=== PATIENT | male | born 1945 | race Caucasian/White ===

== ENCOUNTER → 2020-04-11 09:23 | Outpatient (BNVA) | payer MEDICARE, SELFPAY | PROVIDERS: PCP Internal Medicine; Referring Provider Internal Medicine; Visit Provider Internal Medicine Endocrinology, Diabetes & Metabolism | DX: E11.65 Type 2 diabetes mellitus with hyperglycemia (principal); E11.22 Type 2 diabetes mellitus with diabetic chronic kidney disease; I12.9 Hypertensive chronic kidney disease with stage 1 through stage 4 chronic kidney disease, or unspecified chronic kidney disease; N18.30 Chronic kidney disease, stage 3 unspecified; E11.40 Type 2 diabetes mellitus with diabetic neuropathy, unspecified; Z79.4 Long term (current) use of insulin; E55.9 Vitamin D deficiency, unspecified | CPT/HCPCS: 99214 ==

== ENCOUNTER → 2020-05-05 11:28 | Outpatient (BNVA) | payer MEDICARE, SELFPAY | PROVIDERS: PCP Internal Medicine; Referring Provider Internal Medicine; Visit Provider Internal Medicine Gastroenterology | DX: R15.9 Full incontinence of feces (principal); R10.13 Epigastric pain | CPT/HCPCS: 99212 ==

== ENCOUNTER → 2020-07-06 11:06 | Outpatient (BNVA) | payer MEDICARE, SELFPAY | PROVIDERS: PCP Internal Medicine; Visit Provider Urology | DX: N39.41 Urge incontinence (principal); R31.0 Gross hematuria | CPT/HCPCS: 81002; 99212 ==

== ENCOUNTER → 2020-07-07 10:39 | Outpatient (BNVA) | payer MEDICARE, SELFPAY | PROVIDERS: PCP Internal Medicine; Visit Provider Internal Medicine Gastroenterology | DX: R10.13 Epigastric pain (principal); N39.41 Urge incontinence; R15.9 Full incontinence of feces | CPT/HCPCS: Q3014 ==

== ENCOUNTER 2020-07-20 12:37 | Day surgery (SDC) | payer MEDICARE, SELFPAY ==
[2020-07-20 13:11] LABS: Glucose, Whole Blood 77 mg/dL (60-115)
[2020-07-20 13:26] VITALS: BP 129/69; PULSE 55; RESP 16; TEMP 36.8; O2SAT 99; BMI 22.4
--- NOTE | 2020-07-20 13:29 | P.CONAN_ITS ---
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, lumbosacral Eczema Erectile dysfunction Gross hematuria Hematuria Hypertension Idiopathic chronic pancreatitis residential (current) use of insulin Type II diabetes mellitus Urge incontinence Urinary leakage Vitamin D deficiency Family History Family History Father Diabetes Mother Diabetes CVD (cardiovascular disease) Brother Diabetes Alive and well Brother Alive and well Diabetes Sister Alive and well Son Alive and well Daughter Alive and well Daughter Alive and well Daughter Alive and well Surgical History Surgical History History of cholecystectomy History of esophagogastroduodenoscopy History of prostate surgery History of rotator cuff surgery History of shoulder surgery History of shoulder surgery Pancreatitis Status post glaucoma surgery History of Problems with Anesthesia: Yes ('Needs more anesthesia to fall asleep') Social History Social History Alcohol intake: never Smoking Status: Never smoker Use of substances other than those prescribed or required for medical reasons: No Advance Directives: No Advance Directives Information Provided: Yes Meds Allergies Allergy/AdvReac Type Severity Reaction Status Date / Time Penicillins Allergy Mild Unknown Verified 07/20/20 13:22 fentanyl Allergy Unknown rash Verified 07/20/20 13:22 Home Medications Medication Instructions Recorded Confirmed Type acetaminophen 500 mg tablet 0 mg PO 03/27/20 07/14/20 History aspirin 81 mg tablet,delayed 81 mg PO DAILY 03/27/20 07/14/20 History release blood pressure test kit-large #1 ea 03/27/20 07/14/20 History gabapentin 300 mg capsule 300 mg PO BID 03/27/20 07/14/20 History gabapentin 600 mg tablet 0 mg PO 03/27/20 07/14/20 History [id number]-[id number] 0 cap PO 03/27/20 07/14/20 History 36,000-114,000-180,000 unit capsule,delay rel loperamide 2 mg capsule 0 mg PO 03/27/20 07/14/20 History morphine 15 mg tablet,extended 15 mg PO BID PRN 03/27/20 07/14/20 History release naloxone 4 mg/actuation nasal spray 0 spray INTRANASAL 03/27/20 07/14/20 History ondansetron 8 mg disintegrating 8 mg PO Q8H PRN 03/27/20 07/14/20 History tablet peg-electrolyte solution 420 gram ml PO 03/27/20 07/14/20 History oral solution pen needle, diabetic 32 gauge x #50 ea 03/27/20 07/14/20 History 5/ quetiapine 300 mg tablet 300 mg PO BEDTIME 03/27/20 07/14/20 History ramelteon 8 mg tablet 0 mg PO 03/27/20 07/14/20 History simethicone 125 mg chewable tablet 0 mg PO 03/27/20 07/14/20 History cetirizine 10 mg tablet 10 mg PO DAILY 07/06/20 07/14/20 History meloxicam 15 mg tablet 15 mg PO DAILY 07/06/20 07/14/20 History oxycodone 10 mg tablet 10 mg PO TID PRN 07/06/20 07/14/20 History Exam Exam Date and Time: July 20, 2020 1329 Height,Weight and Vital Signs: Vital Signs Temp Pulse Resp BP Pulse Ox 07/20/20 13:26 98.3 F 55 16 129/69 99 Pertinent Lab Results Pertinent Lab Results: Laboratory Tests 07/20/20 13:07 POC Glucose 77 Airway Mallampati Class: III (Bearded) TM Dist: >3cm Neck ROM: Full Heart: RRR Lungs: CTAB Assessment and Plan Assessment Anesthesia Assessment: Anesthesia Plan Discussed and Chart Reviewed Final Anesthetic Review NPO: Yes ASA Class: III Final Preanesthetic Review: No Changes in Pt Med Stat, Meds/Allgs Chart Reviewed and Consent Obtained/Reviewed Patient Risk: Intermediate Procedure Risk: Low Assessment/Block/Sedation in SS: Assess/Block/Sedation-SS Anesthetic Plan Anesthetic Plan: MAC: Disposition: Standard PACU
--- NOTE | 2020-07-20 14:00 | MHC.SHP ---
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, lumbosacral Eczema Erectile dysfunction Gross hematuria He) History of Previous Operations: Relevant previous surgery/procedure and date(s) (History of cholecystectomy History of esophagogastroduodenoscopy History of prostate surgery History of rotator cuff surgery History of shoulder surgery History of shoulder surgery Pancreatitis Status post glaucoma surgery) Allergies: Allergies Allergy/AdvReac Type Severity Reaction Status Date / Time Penicillins Allergy Mild Unknown Verified 07/20/20 13:22 fentanyl Allergy Unknown rash Verified 07/20/20 13:22 Review of Systems Sugical H&P ROS: Negative: Constitution, Cardiovascular, Respiratory, Neurological, Psychiatric, Hem-Onc, Allergic/Immunologic, Gastrointestinal, Genitourinary, Musculoskeletal, Integumentary, Endocrine and Eyes/Ears/Nose/Throat Exam Surgical H&P Exam: Normal: HEENT, Normal: Heart, Normal: Lungs, Normal: Extremities, Normal: Skin and Normal: Neurological and Significant Findings: Abdomen (tender epigastrium) Plan Diagnosis/Plan: Unchanged I have reviewed the history and physical and performed a pertinent physical examination on my patient. No changes have occurred unless specified. Push enteroscopy and EGD
--- NOTE | 2020-07-20 14:38 | PM.OP ---
Brief Operative Note Date of Service: 07/20/20 Pre-op diagnosis: melena, epigastric pain Post-op diagnosis: same Procedure: see op note Surgeon: Prasanna Irving MD Anesthesia: MAC Estimated blood loss (mL): 0 Condition: stable Disposition: PACU
--- NOTE | 2020-07-20 14:39 | W.PM.OPN ---
Operative Note Operative Note Date of Service: 07/20/20 Narrative: Procedure Description: EGD FLEXIBLE TRANSORAL UPPER GASTROINTESTINAL ENDOSCOPY and Push Enteroscopy UPPER ENDOSCOPY Consent: Indications for the procedure and potential complications of bleeding, perforation, reaction to medications and missed diagnosis were discussed with the patient and informed consent was obtained. Instrument: Olympus GIF H 190 J mid size upper endoscope and pediatric colonoscope Monitoring: Vital signs and clinical assessment, continuous EKG monitoring, Pulse oximetry, Carbon Dioxide monitoring and blood pressure monitoring were done throughout the procedure. Procedure: The patient was placed in the left lateral decubitis position and pre-procedure medications were administered and a bite block was placed. The endoscope was inserted into the mouth and advanced under direct vision to the third part of duodenum. A careful inspection was made as the upper endoscope was withdrawn including a retroflexed examination of the proximal stomach; Findings and interventions are described below. Findings: Larynx:normal Esophagus: GE junction at 39 cm, diaphragm hiatus at 42 cm, there was mild esophagitis at GEJ and also single tongue of salmon pink tissue suggesting barretts esophagus, biopsy taken. There was a small sliding hiatal hernia 3 cm long. Stomach: Patchy gastric erythema with red miller. Biopsies were obtained. Grade 2 flap valve on retroflexed examination of the cardia. There was an inflamed nodular, polypoid lesion in cardia which was biopsied, measured about 8-10 mm. There were nor esophageal or gastric varices seen. Duodenum: Normal bulb and descending duodenum, jejunum: proximal part reached past ligament of Treitz, no blood or melenic material seen, furthermost point marked with ventura ink. Intervention: Biopsies as noted above Impression/Findings: esophagitis gastritis hiatal hernia inflammed polyp/nodule lesion PLAN: confirm compliance with carafate and PPI, if taking then can add gaviscon might need capsule endoscopy, will check labs first and await path
[2020-07-20 15:31] VITALS: BP 115/63; PULSE 69; RESP 16; TEMP 36.1; O2SAT 100
[2020-07-20 15:46] VITALS: BP 136/79; PULSE 62; RESP 17; TEMP 36.2; O2SAT 100
== END 2020-07-20 16:30 | disposition home or self-care (01) ==
PROVIDERS: PCP Internal Medicine; Visit Provider Internal Medicine Gastroenterology
PROC: 0DJ08ZZ Inspection of Upper Intestinal Tract, Via Natural or Artificial Opening Endoscopic (ICD-10-PCS; CPT 43235; principal; 2020-07-20 14:30)
DX: K29.50 Unspecified chronic gastritis without bleeding (principal); K20.90 Esophagitis, unspecified without bleeding; K44.9 Diaphragmatic hernia without obstruction or gangrene; K31.7 Polyp of stomach and duodenum; E11.22 Type 2 diabetes mellitus with diabetic chronic kidney disease; I12.9 Hypertensive chronic kidney disease with stage 1 through stage 4 chronic kidney disease, or unspecified chronic kidney disease; N18.30 Chronic kidney disease, stage 3 unspecified; Z79.4 Long term (current) use of insulin; Z79.82 Long term (current) use of aspirin; Z88.0 Allergy status to penicillin; Z88.8 Allergy status to other drugs, medicaments and biological substances; Z79.899 Other long term (current) drug therapy
CPT/HCPCS: 43239; 43236; 82947; 88305; 88342; J3010

== ENCOUNTER 2020-08-04 08:01 | Outpatient (REF) | payer MEDICARE, SELFPAY ==
--- NOTE | ~2020-08-04 | XR_ITS ---
EXAMINATION: XR HIP, LEFT CLINICAL INFORMATION: Left hip pain. COMPARISON: None TECHNIQUE: Two views of the left hip. FINDINGS: There is minimal lateral femoral head spurring. No erosive changes, loose bodies or joint effusion seen. The soft tissues are normal. XR/XR hip LT min 2V IMPRESSION: Minimal lateral femoral head spurring. The left hip joint space is otherwise unremarkable.
[2020-08-04 10:22] LABS: MANUAL DIFF FLAG NO
[2020-08-04 10:30] LABS: Basophils Percent Auto 0.5 % (0-2); Eosinophils Absolute Auto 0.2 X10*3/uL (0.0-0.4); Eosinophils Percent Auto 3.4 % (0-4); Hematocrit 34.6 % (42-52); Hemoglobin 11.1 g/dl (14.0-18.0); Imm Gran Abs Auto 0.02 X10*3/uL (0.00-0.03); Imm Gran Pct Auto 0.4 % (0.0-0.4); Lymphocytes Absolute Auto 1.8 X10*3/uL (1.2-4.9); Lymphocytes Percent Auto 32.6 % (20-40); Mean Corpuscular HGB Conc 32.1 g/dl (31.0-36.0); Mean Corpuscular Hemoglobin 27.5 pg (27.0-33.0); Mean Corpuscular Volume 85.9 fL (80-98); Mean Platelet Volume 10.3 fL (9.4-12.4); Monocytes Absolute Auto 0.3 X10*3/uL (0.1-1.2); Neutrophils Absolute Auto 3.3 X10*3/uL (2.0-8.3); Neutrophils Percent Auto 58.1 % (45-73); Platelet Count 128 X10*3/uL (160-400); Red Blood Count 4.03 X10*6/uL (4.60-5.80); Red Cell Distribution Width 14.6 % (11.0-16.0); White Blood Count 5.6 X10*3/uL (4.8-10.8)
[2020-08-04 10:40] LABS: Estimated Average Glucose 128 mg/dL; Hemoglobin A1c % 6.1 %
[2020-08-04 11:02] LABS: Alanine Aminotransferase 9 U/L (0-40); Albumin Level 4.3 g/dL (3.5-5.0); Alkaline Phosphatase 136 U/L (39-117); Anion Gap 12 (12-20); Aspartate Amino Transferase 20 U/L (5-37); Bilirubin Total 0.5 mg/dL (0.0-1.0); Blood Urea Nitrogen 16 mg/dL (9-16); Calcium 8.7 mg/dL (8.4-10.2); Carbon Dioxide 27 mmol/L (22-29); Chloride 107 mmol/L (96-108); Cholesterol 89 mg/dL; Estimated Glomerular Filt Rate 33; Glucose Fasting 138 mg/dL (60-99); HDL Cholesterol 33 mg/dL; LDL Cholesterol Calculated 41 mg/dl; Potassium 4.3 mmol/L (3.3-5.1); Sodium 142 mmol/L (135-145); Triglycerides 76 mg/dL
[2020-08-04 11:11] LABS: PSA,Total (Free>4and<10) 2.54 ng/mL (0.00-4.00)
[2020-08-04 11:17] LABS: Creatinine Urine 148.27 mg/dL; Microalbum/Creatinine Ratio Ur 21.5 ug/mg cr
[2020-08-04 11:22] LABS: Vitamin B12 317 pg/mL (200-900)
[2020-08-04 11:31] LABS: Free T4 (Free Thyroxine) 1.06 ng/dL (0.71-1.85); Vitamin D 25-OH Total 34.1 ng/mL (>30)
[2020-08-05 21:52] LABS: LDL Cholesterol Direct 42 mg/dL (<100)
== END 2020-08-04 08:02 | disposition home or self-care (01) ==
LOC: HO.LAB 08:01
PROVIDERS: Urology; Absent Provider Internal Medicine Endocrinology, Diabetes & Metabolism; PCP Internal Medicine; Referring Provider Internal Medicine Gastroenterology; Visit Provider Nurse Practitioner Family
DX: E55.9 Vitamin D deficiency, unspecified (principal); K92.1 Melena; M16.12 Unilateral primary osteoarthritis, left hip; R31.0 Gross hematuria; E11.65 Type 2 diabetes mellitus with hyperglycemia; M47.812 Spondylosis without myelopathy or radiculopathy, cervical region; M46.1 Sacroiliitis, not elsewhere classified; R79.89 Other specified abnormal findings of blood chemistry; N40.1 Benign prostatic hyperplasia with lower urinary tract symptoms; N13.8 Other obstructive and reflux uropathy; Z12.5 Encounter for screening for malignant neoplasm of prostate
CPT/HCPCS: 36415; 73502; 80053; 80061; 82043; 82306; 82607; 83036; 83721; 84153; 84439; 84443; 85025; 88112; 99202

== ENCOUNTER → 2020-08-08 13:28 | Outpatient (BNVA) | payer MEDICARE, SELFPAY | PROVIDERS: PCP Internal Medicine; Visit Provider Urology | DX: N52.9 Male erectile dysfunction, unspecified (principal); R31.0 Gross hematuria; N35.919 Unspecified urethral stricture, male, unspecified site | CPT/HCPCS: 52000; 99212 ==

== ENCOUNTER → 2020-08-16 08:16 | Outpatient (BNVA) | payer MEDICARE, SELFPAY | PROVIDERS: PCP Internal Medicine; Visit Provider Nurse Practitioner Family | DX: M46.1 Sacroiliitis, not elsewhere classified (principal) | CPT/HCPCS: Q3014 ==

== ENCOUNTER → 2020-09-04 14:14 | Outpatient (BNVA) | payer MEDICARE, SELFPAY | PROVIDERS: PCP Internal Medicine; Visit Provider Internal Medicine Gastroenterology | DX: Z13.89 Encounter for screening for other disorder (principal) | CPT/HCPCS: Q3014 ==

== ENCOUNTER 2020-09-11 07:05 | Day surgery (SDC) | payer MEDICARE, SELFPAY ==
[2020-09-07 14:26] VITALS: BMI 21.7
--- NOTE | 2020-09-08 11:34 | P.CONAN_ITS ---
Documented by User: Veronica Saldaña 09/08/20 11:39 HPI - Anesthesia Eval Consult details Narrative: 75yo M for Cystoscopy Urethrotomy with Direct Visualization Fentanyl allergy Chronic opioids EGD with TIVA 06/2020 REPLACED BY [facility] Active Problems Active Problems: All Active Problems (Updated 09/07/20 @ 11:03 by Adriana Bach) Fecal incontinence (Acute) Epigastric abdominal pain (Acute) Melena (Acute) Osteoarthritis of left hip (Acute) Spondylosis of cervical region without myelopathy or radiculopathy (Acute) Bilateral sacroiliitis (Acute) Urethral stricture (Acute) Erectile dysfunction (Acute) Elevated TSH (Acute) Eczema (Acute) Gross hematuria (Acute) Urge incontinence (Acute) Disc degeneration, lumbosacral (Acute) Diabetic neuropathy associated with type 2 diabetes mellitus (Acute) Hypertension (Acute) CKD (chronic kidney disease) stage 3, GFR 30-59 ml/min (Acute) terminal operator (current) use of insulin (Acute) Diabetes type 2, uncontrolled (Acute) Vitamin D deficiency (Acute) Past Medical History Medical History (Updated 09/08/20 @ 11:36 by Veronica Saldaña) Anxiety Chronic bilateral low back pain without sciatica CKD (chronic kidney disease) stage 3, GFR 30-59 ml/min Depressive disorder Diabetes type 2, uncontrolled 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, lumbosacral Eczema Elevated TSH Erectile dysfunction Gross hematuria Hematuria Hiatal hernia Hypertension Idiopathic chronic pancreatitis terminal operator (current) use of insulin Type II diabetes mellitus Urge incontinence Urinary leakage Vitamin D deficiency Family History Family History Father Diabetes Mother Diabetes CVD (cardiovascular disease) Brother Diabetes Alive and well Brother Alive and well Diabetes Sister Alive and well Son Alive and well Daughter Alive and well Daughter Alive and well Daughter Alive and well Surgical History Surgical History (Updated 09/07/20 @ 11:34 by Adriana Bach) History of cholecystectomy History of esophagogastroduodenoscopy History of prostate surgery History of rotator cuff surgery History of shoulder surgery History of shoulder surgery Hx of colonoscopy Pancreatitis Status post glaucoma surgery Social History Social History Alcohol intake: never Smoking Status: Never smoker Use of substances other than those prescribed or required for medical reasons: No Substance Use Frequency: Chronic Longstanding Have you been hit, kicked, punched, or otherwise hurt by someone within the past year? If so, by whom?: No Advance Directives: No Advance Directives Information Provided: No Advance Directives on File: No Recently lost weight without trying: No Meds Allergies Allergy/AdvReac Type Severity Reaction Status Date / Time fentanyl Allergy Unknown rash Verified 09/07/20 10:52 Home Medications Medication Instructions Recorded Confirmed Last Taken Type acetaminophen 500 mg tablet 500 mg PO DIRECTED PRN 03/27/20 09/07/20 Unknown History aspirin 81 mg tablet,delayed 81 mg PO DAILY 03/27/20 09/07/20 07/19/20 21:00 History release blood pressure test kit-large #1 ea 03/27/20 07/14/20 Unknown History gabapentin 300 mg capsule 300 mg PO BID 03/27/20 09/07/20 Unknown History gabapentin 600 mg tablet 600 mg PO 03/27/20 07/14/20 Unknown History kwaapr-[id number]-jroniuk 1 cap PO DAILY 03/27/20 09/07/20 Unknown History 36,000-114,000-180,000 unit capsule,delay rel loperamide 2 mg capsule 2 mg PO DIRECTED PRN 03/27/20 09/07/20 Unknown History morphine 15 mg tablet,extended 15 mg PO BID PRN 03/27/20 09/07/20 Unknown History release naloxone 4 mg/actuation nasal spray 0 spray INTRANASAL 03/27/20 07/14/20 Unknown History ondansetron 8 mg disintegrating 8 mg PO Q8H PRN 03/27/20 09/07/20 Unknown History tablet peg-electrolyte solution 420 gram ml PO 03/27/20 07/14/20 Unknown History oral solution pen needle, diabetic 32 gauge x #50 ea 03/27/20 07/14/20 Unknown History quetiapine 300 mg tablet 300 mg PO BEDTIME 03/27/20 09/07/20 Unknown History ramelteon 8 mg tablet 8 mg PO 03/27/20 07/14/20 Unknown History simethicone 125 mg chewable tablet 125 mg PO 03/27/20 07/14/20 Unknown History cetirizine 10 mg tablet 10 mg PO DAILY 07/06/20 09/07/20 Unknown History oxycodone 10 mg tablet 10 mg PO TID PRN 07/06/20 09/07/20 Unknown History fluticasone propionate 1 spray INTRANASAL DAILY 09/07/20 09/07/20 Unknown History Exam Exam Date and Time: September 08, 2020 1134 Height,Weight and Vital Signs: Height 6 ft 1 in Weight 74.843 kg Pertinent Lab Results Pertinent Lab Results: Laboratory Tests 08/04/20 08/04/20 09:46 09:46 WBC 5.6 Hgb 11.1 L Hct 34.6 L Plt Count 128 L Sodium 142 Potassium 4.3 Chloride 107 Carbon Dioxide 27 BUN 16 Creatinine 1.99 H Narrative Narrative: 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 Assessment and Plan Assessment Anesthesia Assessment: Chart Reviewed Documented by User: Sabrina Sawyer 09/11/20 07:49 REPLACED BY [facility] Past Medical History Medical History (Updated 09/08/20 @ 11:36 by Veronica Saldaña) Anxiety Chronic bilateral low back pain without sciatica CKD (chronic kidney disease) stage 3, GFR 30-59 ml/min Depressive disorder Diabetes type 2, uncontrolled 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, lumbosacral Eczema Elevated TSH Erectile dysfunction Gross hematuria Hematuria Hiatal hernia Hypertension Idiopathic chronic pancreatitis terminal operator (current) use of insulin Type II diabetes mellitus Urge incontinence Urinary leakage Vitamin D deficiency Family History Family History Father Diabetes Mother Diabetes CVD (cardiovascular disease) Brother Diabetes Alive and well Brother Alive and well Diabetes Sister Alive and well Son Alive and well Daughter Alive and well Daughter Alive and well Daughter Alive and well Surgical History Surgical History (Updated 09/07/20 @ 11:34 by Adriana Bach) History of cholecystectomy History of esophagogastroduodenoscopy History of prostate surgery History of rotator cuff surgery History of shoulder surgery History of shoulder surgery Hx of colonoscopy Pancreatitis Status post glaucoma surgery Social History Social History Alcohol intake: never Smoking Status: Never smoker Use of substances other than those prescribed or required for medical reasons: No Substance Use Frequency: Chronic Longstanding Have you been hit, kicked, punched, or otherwise hurt by someone within the past year? If so, by whom?: No Advance Directives: No Advance Directives Information Provided: No Advance Directives on File: No Recently lost weight without trying: No Meds Allergies Allergy/AdvReac Type Severity Reaction Status Date / Time fentanyl Allergy Unknown rash Verified 09/07/20 10:52 Home Medications Medication Instructions Recorded Confirmed Last Taken Type acetaminophen 500 mg tablet 500 mg PO DIRECTED PRN 03/27/20 09/07/20 Unknown History aspirin 81 mg tablet,delayed 81 mg PO DAILY 03/27/20 09/07/20 07/19/20 21:00 His tory release blood pressure test kit-large #1 03/27/20 07/14/20 Unknown History gabapentin 300 mg capsule 300 mg PO BID 03/27/20 09/07/20 Unknown History gabapentin 600 mg tablet 600 mg PO 03/27/20 07/14/20 Unknown History [id number] 1 cap PO DAILY 03/27/20 09/07/20 Unknown History 36,000-114,000-180,000 unit capsule,delay rel loperamide 2 mg capsule 2 mg PO DIRECTED PRN 03/27/20 09/07/20 Unknown History morphine 15 mg tablet,extended 15 mg PO BID PRN 03/27/20 09/07/20 Unknown History release naloxone 4 mg/actuation nasal spray 0 spray INTRANASAL 03/27/20 07/14/20 Unknown History ondansetron 8 mg disintegrating 8 mg PO Q8H PRN 03/27/20 09/07/20 Unknown History tablet peg-electrolyte solution 420 gram ml PO 03/27/20 07/14/20 Unknown History oral solution pen needle, diabetic 32 gauge x #50 ea 03/27/20 07/14/20 Unknown History quetiapine 300 mg tablet 300 mg PO BEDTIME 03/27/20 09/07/20 Unknown History ramelteon 8 mg tablet 8 mg PO 03/27/20 07/14/20 Unknown History simethicone 125 mg chewable tablet 125 mg PO 03/27/20 07/14/20 Unknown History cetirizine 10 mg tablet 10 mg PO DAILY 07/06/20 09/07/20 Unknown History oxycodone 10 mg tablet 10 mg PO TID PRN 07/06/20 09/07/20 Unknown History fluticasone propionate 1 spray INTRANASAL DAILY 09/07/20 09/07/20 Unknown History Exam Airway Mallampati Class: II TM Dist: >3cm Neck ROM: Full Heart: RRR Lungs: CTA BL Assessment and Plan Assessment Anesthesia Assessment: Anesthesia Plan Discussed and Chart Reviewed Final Anesthetic Review NPO: Yes (Sip water with meds) ASA Class: III Final Preanesthetic Review: No Changes in Pt Med Stat, Meds/Allgs Chart Reviewed and Consent Obtained/Reviewed Patient Risk: Intermediate Procedure Risk: Intermediate Anesthetic Plan Anesthetic Plan: GA Disposition: Standard PACU
[2020-09-11] VITALS (7 sets, daily range): BP systolic 111–153; BP diastolic 59–80; PULSE 58–63; RESP 12–16; TEMP 36.2; O2SAT 94–98
--- NOTE | 2020-09-11 07:21 | MHC.SHP ---
Pre-Procedural Eval Section A The patient is an INPATIENT: No Changes since office visit: No Cold of Flu in the past 2 weeks, No New Medical Problems, No Changes in Medication and No Patient answered all questions The History & Physical has been completed within 30 days and I have reviewed it.: Yes Section B Chief Complaint: Urethral stricture Allergies: Allergies Allergy/AdvReac Type Severity Reaction Status Date / Time fentanyl Allergy Unknown rash Verified 09/07/20 10:52 Plan Diagnosis/Plan: Unchanged I have reviewed the history and physical and performed a pertinent physical examination on my patient. No changes have occurred unless specified. Direct visualization internal urethrotomy
[2020-09-11 07:42] LABS: Glucose, Whole Blood 78 mg/dL (60-115)
[2020-09-11] MEDS: levoFLOXacin 500 MG TABLET PO (07:43)
[2020-09-11] MEDS: Lactated Ringers 1,000 ML 50 ML IV (07:52)
--- NOTE | 2020-09-11 08:23 | PC.NURSE ---
discount clerk used for remaining questions he had. md ortega aware and stated he still needs to do the procedure in order to look inside to see where his hematuria is coming from. patient still wants to go with the plan.
--- NOTE | 2020-09-11 08:54 | PM.OP ---
Brief Operative Note Date of Service: 09/11/20 Pre-op diagnosis: Urethral bulbar stricture Post-op diagnosis: same Procedure: Direct visualization internal urethrotomy Surgeon: Juan Rose MD Anesthesia: GLMA Estimated blood loss (mL): 0 Pathology: none sent Condition: stable Disposition: same day
--- NOTE | 2020-09-11 08:55 | W.PM.OPN ---
Operative Note Operative Note Date of Service: 09/11/20 Narrative: PreOperative Diagnosis: Bulbar stricture and hematuria Post Operative Diagnosis: Bulbar stricture with prostatic regrowth Procedure: Direct visualization internal urethrotomy and cystoscopy Surgeon: Dr Juan Rose Anesthesia: General Indications for procedure: This is a 75-year-old male. Underwent prostate procedure number of years ago. Had presented to office with hematuria. On cystoscopy had had a bulbar stricture which we were unable to pass. He is here for direct visualization internal urethrotomy plus cystoscopy of the bladder. Procedure: After informed consent was verified the patient was brought to the operating room and placed in a supine position. Anesthesia was administered per protocol. Patient was placed in modified dorsal lithotomy position and prepped and draped in a sterile fashion. Safety pause time-out was performed. Antibiotics have been given. Cystoscopy was performed. Bulbar urethra narrowing with annular stricture was found. Using a urethrotome a sharp incision was made the 12 o'clock position 1 cm proximal small to 1 cm distal of the annular stricture. The bladder was entered. Bladder was examined in its entirety. Appears that there were some neovascularity on the prostatic regrowth from the prior prostate procedure. This was the source for the hematuria. The cystoscope was removed. A 20 [place] Ibanez catheter was placed which will stay for 3 days. Pathology: none Drains: 20 [place] ibanez
== END 2020-09-11 10:50 | disposition home or self-care (01) ==
PROVIDERS: PCP Internal Medicine; Visit Provider Urology
PROC: (CPT 52276; principal; 2020-09-11 08:30)
DX: N35.912 Unspecified bulbous urethral stricture, male (principal); N42.89 Other specified disorders of prostate; R31.9 Hematuria, unspecified; E11.21 Type 2 diabetes mellitus with diabetic nephropathy; E11.22 Type 2 diabetes mellitus with diabetic chronic kidney disease; I12.9 Hypertensive chronic kidney disease with stage 1 through stage 4 chronic kidney disease, or unspecified chronic kidney disease; N18.30 Chronic kidney disease, stage 3 unspecified; N52.9 Male erectile dysfunction, unspecified; K86.1 Other chronic pancreatitis; F32.9 Major depressive disorder, single episode, unspecified; Z79.4 Long term (current) use of insulin; Z79.899 Other long term (current) drug therapy; Z79.82 Long term (current) use of aspirin; Z88.0 Allergy status to penicillin; Z88.8 Allergy status to other drugs, medicaments and biological substances
CPT/HCPCS: 52276; 82947; J1100; J2250; J2405; J3010

== ENCOUNTER 2020-09-29 15:24 | Outpatient (REF) | payer MEDICARE, SELFPAY | END 2020-09-29 15:25 | disposition home or self-care (01) | LOC: CF 15:24 | PROVIDERS: PCP Internal Medicine; Visit Provider Urology | DX: N35.919 Unspecified urethral stricture, male, unspecified site (principal); R31.0 Gross hematuria; N52.9 Male erectile dysfunction, unspecified; M46.1 Sacroiliitis, not elsewhere classified; Z46.6 Encounter for fitting and adjustment of urinary device | CPT/HCPCS: 51700; 99212 ==

== ENCOUNTER 2020-10-13 10:34 | Outpatient (REF) | payer MEDICARE, SELFPAY ==
--- NOTE | ~2020-10-13 | XR_ITS ---
EXAMINATION: XR ABDOMEN KUB CLINICAL INDICATION: Epigastric pain COMPARISON: None TECHNIQUE: AP view of the abdomen. FINDINGS: There are no dilated loops of bowel to suggest obstruction. There is no evidence of free air. There are surgical clips in the right upper quadrant suggestive of previous cholecystectomy. No calcifications are seen. There are degenerative changes of the spine and mild curvature of the proximal lumbar spine to the right. XR/XR abdomen 1V IMPRESSION: Unremarkable exam.
[2020-10-13 12:20] LABS: MANUAL DIFF FLAG NO
[2020-10-13 12:24] LABS: Basophils Percent Auto 0.4 % (0-2); Eosinophils Absolute Auto 0.2 X10*3/uL (0.0-0.4); Eosinophils Percent Auto 2.9 % (0-4); Hematocrit 35.1 % (42-52); Hemoglobin 11.4 g/dl (14.0-18.0); Imm Gran Abs Auto 0.01 X10*3/uL (0.00-0.03); Imm Gran Pct Auto 0.2 % (0.0-0.4); Lymphocytes Absolute Auto 1.6 X10*3/uL (1.2-4.9); Lymphocytes Percent Auto 31.1 % (20-40); Mean Corpuscular HGB Conc 32.5 g/dl (31.0-36.0); Mean Corpuscular Hemoglobin 27.5 pg (27.0-33.0); Mean Corpuscular Volume 84.8 fL (80-98); Mean Platelet Volume 9.9 fL (9.4-12.4); Monocytes Absolute Auto 0.3 X10*3/uL (0.1-1.2); Monocytes Percent Auto 5.7 % (2-11); Neutrophils Absolute Auto 3.1 X10*3/uL (2.0-8.3); Neutrophils Percent Auto 59.7 % (45-73); Platelet Count 123 X10*3/uL (160-400); Red Blood Count 4.14 X10*6/uL (4.60-5.80); Red Cell Distribution Width 14.3 % (11.0-16.0); White Blood Count 5.2 X10*3/uL (4.8-10.8)
[2020-10-13 12:52] LABS: Alanine Aminotransferase 17 U/L (0-40); Albumin Level 4.5 g/dL (3.5-5.0); Alkaline Phosphatase 200 U/L (39-117); Anion Gap 12 (12-20); Aspartate Amino Transferase 39 U/L (5-37); Bilirubin Total 0.7 mg/dL (0.0-1.0); Blood Urea Nitrogen 22 mg/dL (9-16); Carbon Dioxide 25 mmol/L (22-29); Chloride 108 mmol/L (96-108); Estimated Glomerular Filt Rate 39; Glucose Random 100 mg/dL (60-115); Lipase < 4 U/L (8-78); Potassium 4.1 mmol/L (3.3-5.1); Sodium 141 mmol/L (135-145); Total Protein 7.2 g/dL (6.5-8.0)
[2020-10-13 13:10] LABS: Erythrocyte Sedimentation Rate 10 MM/HR (0-15); Ferritin 131 ng/mL (20-250)
[2020-10-13 14:08] LABS: Glucose Urine UA NEG (NEG); Leukocyte Esterase Urine NEG (NEG); Nitrite Urine NEG (NEG); Specific Gravity - Urine 1.025 (1.005-1.025); Urine Blood NEG (NEG); Urine Ketones NEG (NEG); Urine Protein NEG (NEG-TRACE)
[2020-10-13 14:14] LABS: Appearance Urine CLEAR; Color Urine YELLOW
== END 2020-10-13 10:35 | disposition home or self-care (01) ==
LOC: HO.XRAY 10:34
PROVIDERS: PCP Internal Medicine; Visit Provider Internal Medicine Gastroenterology
DX: R10.13 Epigastric pain (principal); R15.9 Full incontinence of feces; K92.1 Melena; R30.0 Dysuria
CPT/HCPCS: 36415; 74018; 80053; 81003; 82728; 83690; 85025; 85652; 99212

== ENCOUNTER → 2020-10-31 07:46 | Outpatient (REF) | payer MEDICARE, SELFPAY ==
--- NOTE | ~2020-10-31 | NM_ITS ---
EXAMINATION: NM RADIONUCLIDE SOLID FOOD GASTRIC EMPTYING 4-HOUR STUDY CLINICAL INFORMATION: Early satiety. COMPARISON: None. TECHNIQUE: A standard meal consisting of 4 oz of Egg Beaters brand tagged with 0.871 microcuries Tc-99m Sulfur Colloid, 2 oz water and 2 slices of toast with jelly was administered orally to the patient. Images were obtained using a dual head gamma camera in the anterior and posterior projections over of the stomach immediately post ingestion and at hourly intervals up to 4 hours post ingestion. The anterior and posterior counts at each time interval were averaged using the geometric mean and expressed as percentage of the immediate post ingestion counts. FINDINGS: There is good visualization of activity in the stomach immediately post ingestion. As the study progresses, there is good clearance of activity from the stomach and visualization of progressively increasing small bowel activity. By the end of the study, there is almost no retention noted in the stomach. Retention in the stomach at each time interval was: 1 hour 46% (normal 37%-90%) 2 hours 30% (normal 30%-60%) 3 hours 26% 4 hours 14% (normal 0%-10%) NM/NM gastric emptying study IMPRESSION: Minimal delayed gastric emptying, 14% food remaining at 4 hours.
== END ==
LOC: HO.NUCMED 07:46
PROVIDERS: PCP Internal Medicine; Visit Provider Internal Medicine Gastroenterology
DX: R68.81 Early satiety (principal)
CPT/HCPCS: 78264; A9541

== ENCOUNTER 2020-11-08 13:01 | Outpatient (REF) | payer MEDICARE, SELFPAY ==
[2020-11-08 14:50] LABS: Alanine Aminotransferase 13 U/L (0-40); Albumin Level 4.8 g/dL (3.5-5.0); Alkaline Phosphatase 179 U/L (39-117); Anion Gap 12 (12-20); Aspartate Amino Transferase 20 U/L (5-37); Bilirubin Total 0.8 mg/dL (0.0-1.0); Blood Urea Nitrogen 24 mg/dL (9-16); Calcium 9.8 mg/dL (8.4-10.2); Carbon Dioxide 27 mmol/L (22-29); Chloride 106 mmol/L (96-108); Estimated Glomerular Filt Rate 32; Gamma Glutamyl Transpeptidase 116 U/L (11-51); Glucose Random 119 mg/dL (60-115); Potassium 5.1 mmol/L (3.3-5.1); Sodium 140 mmol/L (135-145); Total Protein 7.8 g/dL (6.5-8.0)
[2020-11-08 14:57] LABS: Free T4 (Free Thyroxine) 0.93 ng/dL (0.71-1.85)
[2020-11-08 15:01] LABS: Prostate Specific Antigen 4.19 ng/mL (<0.05-4.0); Thyroid Stimulating Hormone 2.27 uIU/mL (0.32-4.0)
[2020-11-09 06:27] LABS: Thyroglobulin Antibodies <1 IU/mL (< or = 1); Thyroid Peroxidase Antibodies <1 IU/mL (<9)
[2020-11-13 14:22] LABS: Alk.Phos Iso. Macrohepatic 0 % (<=0); Alk.Phos Isoenzymes Bone 41 % (28-66); Alk.Phos Isoenzymes Intest 0 % (1-24); Alk.Phos Isoenzymes Liver 59 % (25-69); Alk.Phos Isoenzymes Placental 0 % (<=0); Alk.Phos Isoenzymes Total 154 U/L (35-144)
== END 2020-11-08 13:02 | disposition home or self-care (01) ==
LOC: HO.LAB 13:01
PROVIDERS: Internal Medicine Gastroenterology; PCP Internal Medicine; Visit Provider Internal Medicine Endocrinology, Diabetes & Metabolism
DX: Z12.5 Encounter for screening for malignant neoplasm of prostate (principal); R10.13 Epigastric pain; K75.81 Nonalcoholic steatohepatitis (NASH); R79.89 Other specified abnormal findings of blood chemistry; E11.65 Type 2 diabetes mellitus with hyperglycemia; E11.40 Type 2 diabetes mellitus with diabetic neuropathy, unspecified; I12.9 Hypertensive chronic kidney disease with stage 1 through stage 4 chronic kidney disease, or unspecified chronic kidney disease; N18.30 Chronic kidney disease, stage 3 unspecified; E55.9 Vitamin D deficiency, unspecified; Z79.4 Long term (current) use of insulin
CPT/HCPCS: 36415; 80053; 82947; 82977; 84080; 84153; 84439; 84443; 86376; 86800; 99212

== ENCOUNTER 2020-11-08 14:12 | Emergency (ER) | payer MEDICARE, SELFPAY ==
[2020-11-08 14:17] VITALS: BP 150/93; PULSE 109; RESP 17; TEMP 36.6; O2SAT 96; BMI 20.8
[2020-11-08 16:53] LABS: MANUAL DIFF FLAG NO
[2020-11-08 16:55] LABS: Basophils Percent Auto 0.4 % (0-2); Eosinophils Absolute Auto 0.1 X10*3/uL (0.0-0.4); Eosinophils Percent Auto 1.9 % (0-4); Hematocrit 36.3 % (42-52); Hemoglobin 11.8 g/dl (14.0-18.0); Imm Gran Abs Auto 0.01 X10*3/uL (0.00-0.03); Imm Gran Pct Auto 0.2 % (0.0-0.4); Lymphocytes Absolute Auto 1.4 X10*3/uL (1.2-4.9); Lymphocytes Percent Auto 26.8 % (20-40); Mean Corpuscular HGB Conc 32.5 g/dl (31.0-36.0); Mean Corpuscular Hemoglobin 27.8 pg (27.0-33.0); Mean Corpuscular Volume 85.4 fL (80-98); Mean Platelet Volume 10.5 fL (9.4-12.4); Monocytes Absolute Auto 0.3 X10*3/uL (0.1-1.2); Monocytes Percent Auto 6.2 % (2-11); Neutrophils Absolute Auto 3.3 X10*3/uL (2.0-8.3); Neutrophils Percent Auto 64.5 % (45-73); Platelet Count 130 X10*3/uL (160-400); Red Blood Count 4.25 X10*6/uL (4.60-5.80); Red Cell Distribution Width 13.8 % (11.0-16.0); White Blood Count 5.1 X10*3/uL (4.8-10.8)
[2020-11-08 17:32] LABS: Alanine Aminotransferase 13 U/L (0-40); Albumin Level 4.5 g/dL (3.5-5.0); Alkaline Phosphatase 164 U/L (39-117); Anion Gap 12 (12-20); Aspartate Amino Transferase 19 U/L (5-37); Bilirubin Total 0.7 mg/dL (0.0-1.0); Blood Urea Nitrogen 24 mg/dL (9-16); Calcium 9.3 mg/dL (8.4-10.2); Carbon Dioxide 25 mmol/L (22-29); Chloride 105 mmol/L (96-108); Creatinine Clr Calc Pharmacy 33.3; Estimated Glomerular Filt Rate 33; Glucose Random 199 mg/dL (60-115); Lipase < 4 U/L (8-78); Potassium 4.4 mmol/L (3.3-5.1); Sodium 138 mmol/L (135-145); Total Protein 7.2 g/dL (6.5-8.0)
--- NOTE | 2020-11-08 17:38 | ED_ITS ---
HPI - Abdominal Pain General Chief Complaint: Abdominal Pain Stated Complaint: ABD PAIN Time Seen by Provider: 11/08/20 17:36 Source: patient Mode of arrival: ambulatory Limitations: no limitations History of Present Illness HPI narrative: Patient's history of idiopathic chronic pancreatitis diabetes chronic renal disease depression sent from an occult his office for evaluation for weight loss of 15 lb in last 4 months patient been followed by multineedle shirrer had endoscopy and colonoscopy last month had CT scans seen at [facility] last week workup in progress patient denies any significant complaint at this time different from her previous . Patient denies any nausea/vomiting/diarrhea no fever or chills Related Data Home Medications Medication Instructions Recorded Confirmed blood pressure test kit-large #1 ea 03/27/20 11/08/20 gabapentin 600 mg tablet 600 mg PO 03/27/20 11/08/20 Previous Rx's Medication Instructions Recorded pantoprazole 40 mg PO BID #90 tab 07/20/20 sildenafil 100 mg tablet 100 mg PO DAILY PRN 30 Days #30 tab 08/08/20 naloxegol 12.5 mg tablet 12.5 mg PO QAM #30 tab 09/04/20 vitamin E (dl, acetate) 450 mg PO DAILY 30 Days #30 cap 09/11/20 sucralfate 100 mg/mL oral 10 ml PO BID #420 ml 10/13/20 suspension blood sugar diagnostic #150 ea 11/07/20 lancets 28 gauge #150 ea 11/07/20 cholecalciferol (vitamin D3) 50 50 mcg PO DAILY 90 Days #90 cap 11/08/20 mcg (2,000 unit) capsule insulin aspart U-100 100 unit/mL See Rx Instructions SUBCUT TID 30 11/08/20 (3 mL) subcutaneous pen Days #15 ml insulin degludec 100 unit/mL (3 10 unit SUBCUT BEDTIME 30 Days #3 11/08/20 mL) subcutaneous pen ml omeprazole 40 mg PO DAILY #30 cap 11/08/20 pen needle, diabetic 32 gauge x #400 ea 11/08/20 sucralfate 1 g PO TID #90 tab 11/08/20 Allergies Allergy/AdvReac Type Severity Reaction Status Date / Time No Known Allergies Allergy Verified 10/13/20 10:48 Review of Systems Review of Systems Constitutional : ++ Weight loss, No Fever, No Chills ENT/Mouth : No sore throat, No Rhinorrhea Eyes: No Eye Pain, No Swelling Cardiovascular : No Chest Pain, no palpitations Respiratory : No Cough, No Sputum, no shortness of breath Gastrointestinal : no Nausea, No Vomiting, No Diarrhea, chronic abdominal Pain, no black stools Genitourinary : No Dysuria, No Urinary Frequency Musculoskeletal : No joint pain, No Myalgias, No Joint Swelling Skin : No Skin Lesions, No rash Neuro : No Weakness, No Numbness, No Dizziness, No Headache Psych : No Anxiety/Panic, No Depression Heme/Lymph: No Bruising, No Lymphadenopathy Endocrine : No Polyuria, No Polydipsia All other systems reviewed and are negative Physical Exam Vital Signs: Vital Signs: Last Vital Signs Temp 97.9 F 11/08/20 14:17 Pulse 109 H 11/08/20 14:17 Resp 17 11/08/20 14:17 BP 150/93 H 11/08/20 14:17 Pulse Ox 96 11/08/20 14:17 Body Mass Index 20.8 Appearance: Alert. Oriented X3. No acute distress. Eyes: PERRLA, No Nystagmus ENT: Pharynx normal. Oral Mucosa moist Neck: Normal inspection. Neck supple. CVS: Normal heart rate and rhythm. Pulses normal. Respiratory: No respiratory distress. Equal air entry bilateral, no wheezing/rales/rhonchi Abdomen: Soft and mild epigastric tenderness Bowel sounds are present, no mass palpable, no CVA tenderness Skin: Skin warm and dry. Normal skin color. Normal skin turgor. Extremities: No lower extremity edema. No calf tenderness Neuro: Oriented X 3. No motor deficit. No sensory deficit.No cerebellar signs , cranial nerves II-XII intact MDM - Abdominal Pain MDM Narrative Medical decision making narrative: Patient with chronic abdominal pain already been followed by [facility] and multineedle shirrer already had endoscopy and colonoscopy lab workup is stable patient had food in the ER. Advised to follow with multineedle shirrer as scheduled Lab Data Result diagrams: 11/08/20 16:45 11/08/20 16:45 Labs: Lab Results 11/08/20 11/08/20 11/08/20 Range/Units 16:45 16:45 16:45 WBC 5.1 (4.8-10.8) X10*3/uL RBC 4.25 L (4.60-5.80) X10*6/uL Hgb 11.8 L (14.0-18.0) g/dl Hct 36.3 L (42-52) % MCV 85.4 (80-98) fL MCH 27.8 (27.0-33.0) pg MCHC 32.5 (31.0-36.0) g/dl RDW 13.8 (11.0-16.0) % Plt Count 130 L (160-400) X10*3/uL MPV 10.5 (9.4-12.4) fL Immature Gran % (Auto) 0.2 (0.0-0.4) % Neut % (Auto) 64.5 (45-73) % Lymph % (Auto) 26.8 (20-40) % [place] % (Auto) 6.2 (2-11) % Eos % (Auto) 1.9 (0-4) % Baso % (Auto) 0.4 (0-2) % Lymph # (Auto) 1.4 (1.2-4.9) X10*3/uL [place] # (Auto) 0.3 (0.1-1.2) X10*3/uL Eos # (Auto) 0.1 (0.0-0.4) X10*3/uL Baso # (Auto) 0.0 (0.0-0.2) X10*3/uL Abs Immat Gran (auto) 0.01 (0.00-0.03) X10*3/uL Absolute Neuts (auto) 3.3 (2.0-8.3) X10*3/uL Absolute Nucleated RBC 0.000 (0.0-0.012) X10*3/uL Nucleated RBC % (auto) 0.0 (0.0-0.2) /100WBC Hold Blue Top SEE NOTE Sodium 138 (135-145) mmol/L Potassium 4.4 (3.3-5.1) mmol/L Chloride 105 (96-108) mmol/L Carbon Dioxide 25 (22-29) mmol/L Anion Gap 12 (12-20) BUN 24 H (9-16) mg/dL Creatinine 1.97 H (0.5-1.4) mg/dL Estim Creat Clear Calc 33.3 Estimated GFR 33 Random Glucose 199 H D (60-115) mg/dL Calcium 9.3 (8.4-10.2) mg/dL Total Bilirubin 0.7 (0.0-1.0) mg/dL AST 19 (5-37) U/L ALT 13 (0-40) U/L Alkaline Phosphatase 164 H (39-117) U/L Total Protein 7.2 (6.5-8.0) g/dL Albumin 4.5 (3.5-5.0) g/dL Lipase < 4 L (8-78) U/L Discharge Plan Discharge Clinical Impression: Abdominal pain, chronic, epigastric Patient Disposition: Home, Self-Care Instructions: Chronic Abdominal Pain (ED) Additional Instructions: Continue medication and follow with the multineedle shirrer as scheduled Start taking Prilosec and sucralfate for chronic gastritis. Prescriptions: New sucralfate 1 gram tablet 1 g PO TID Qty: 90 RF: 0 omeprazole 40 mg capsule,delayed release(DR/EC) 40 mg PO DAILY Qty: 30 RF: 0 No Action (DME) blood sugar diagnostic Strip See Rx Instructions strip Not Applicable BID Qty: 150 RF: 6 (DME) lancets 28 gauge misc See Rx Instructions ea topical QID Qty: 150 RF: 6 vitamin E (dl, acetate) 450 mg (1,000 unit) capsule 450 mg PO DAILY 30 Days Qty: 30 RF: 0 pantoprazole 40 mg tablet,delayed release (DR/EC) 40 mg PO BID Qty: 90 RF: 2 sildenafil 100 mg tablet 100 mg PO DAILY PRN (Reason: sexual activity) 30 Days Qty: 30 RF: 0 gabapentin 600 mg tablet 600 mg PO RF: 0 (DME) blood pressure test kit-large Kit See Rx Instructions ea .ROUTE .MEDSUPPLY Qty: 1 RF: 0 Movantik 12.5 mg tablet 12.5 mg PO QAM Qty: 30 RF: 1 insulin aspart U-100 100 unit/mL (3 mL) insulin pen See Rx Instructions subcut TID 30 Days Qty: 15 RF: 9 insulin degludec 100 unit/mL (3 mL) insulin pen 10 unit subcut BEDTIME 30 Days Qty: 3 RF: 10 (DME) pen needle, diabetic [BD Romina 2nd Gen Pen Needle] 32 gauge x 5/32 needle See Rx Instructions .MEDSUPPLY Qty: 400 RF: 5 cholecalciferol (vitamin D3) 50 mcg (2,000 unit) capsule 50 mcg PO DAILY 90 Days Qty: 90 RF: 2 sucralfate 100 mg/mL suspension 10 ml PO BID Qty: 420 RF: 3 Print Language: Divehi [facility] Past Medical History Medical History Anxiety Chronic bilateral low back pain without sciatica CKD (chronic kidney disease) stage 3, GFR 30-59 ml/min Depressive disorder Diabetes type 2, uncontrolled 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, lumbosacral Eczema Elevated TSH Erectile dysfunction Gross hematuria Hematuria Hiatal hernia Hypertension Idiopathic chronic pancreatitis group home (current) use of insulin Type II diabetes mellitus Urge incontinence Urinary leakage Vitamin D deficiency Surgical History History of cholecystectomy History of esophagogastroduodenoscopy History of prostate surgery History of rotator cuff surgery History of shoulder surgery History of shoulder surgery Hx of colonoscopy Pancreatitis Status post glaucoma surgery Family History Family History Father Diabetes Mother Diabetes CVD (cardiovascular disease) Brother Diabetes Alive and well Brother Alive and well Diabetes Sister Alive and well Son Alive and well Daughter Alive and well Daughter Alive and well Daughter Alive and well Social History Social History Alcohol intake: never Smoking Status: Never smoker Advance Directives: No Advance Directives Information Provided: No
[2020-11-08] MEDS: Omeprazole 40 MG CAPSULE.DR PO (18:14)
[2020-11-08] MEDS: Magnesium Hydrox/Alum Hydrox 30 ML ORAL.SUSP PO (18:14)
== END 2020-11-09 09:52 | disposition home or self-care (01) ==
PROVIDERS: Emergency Provider Internal Medicine
DX: R63.4 Abnormal weight loss (principal); R10.13 Epigastric pain; E11.22 Type 2 diabetes mellitus with diabetic chronic kidney disease; I12.9 Hypertensive chronic kidney disease with stage 1 through stage 4 chronic kidney disease, or unspecified chronic kidney disease; N18.30 Chronic kidney disease, stage 3 unspecified; Z79.4 Long term (current) use of insulin
CPT/HCPCS: 36415; 80053; 83690; 85025; 99281; 99283

== ENCOUNTER 2020-11-14 15:35 | Emergency (ER) | payer MEDICARE, SELFPAY ==
--- NOTE | ~2020-11-14 | CT_ITS ---
EXAMINATION: CT ABDOMEN AND PELVIS WITHOUT CONTRAST CLINICAL INFORMATION: Reason for Exam History of pancreatitis now with abdominal pain . COMPARISON: No pertinent prior studies are available for comparison. TECHNIQUE: Multidetector volumetric imaging was performed from the superior aspect of the liver through the pubic symphysis without contrast per renal stone protocol. Sagittal and coronal reformatted images were obtained on the technologist workstation. This CT examination was performed using dose optimization techniques as appropriate, variously including the following: *Automated exposure control *Adjustment of mA and/or kV according to patient size (this includes techniques or standardized protocols for targeted exams where dose is matched to indication/reason for exam; i.e. extremities or head) *Use of iterative reconstruction technique DLP: 440 mGy-cm. FINDINGS: LUNG BASES: The visualized lung bases are unremarkable. LIVER, GALLBLADDER, BILIARY TREE: The non-contrast liver is normal in size, shape, and attenuation. No focal hepatic lesion or biliary ductal dilatation is present. The gallbladder surgically absent. PANCREAS: Pancreas is markedly atrophic with coarsened calcifications in the pancreatic head consistent with sequela of chronic pancreatitis. I do not appreciate any definitive acute superimposed pancreatitis. SPLEEN: Unremarkable. ADRENAL GLANDS: Unremarkable. KIDNEYS AND URETERS: The kidneys are normal in size, shape, and attenuation. No hydronephrosis, hydroureter, or calculi seen. No perinephric stranding. BLADDER: Unremarkable. GASTROINTESTINAL TRACT: There is scattered colonic diverticulosis more so in the sigmoid colon. I do not appreciate any colonic wall thickening or pericolonic inflammatory change to suggest diverticulitis. Normal-appearing appendix partially visualized in the right lower quadrant. Visualized small bowel is unremarkable ABDOMINAL WALL: No significant hernia is appreciated. LYMPHOVASCULAR STRUCTURES: No lymphadenopathy. The aorta is unremarkable.. PELVIC VISCERA: Unremarkable. OSSEUS STRUCTURES: Multilevel degenerative changes in the spine again noted. CT/CT abdomen pelvis wo con IMPRESSION: No acute intra-abdominal process seen. Scattered diverticulosis but no obvious diverticulitis. Sequela of chronic pancreatitis but no acute pancreatitis seen.
[2020-11-14 15:50] VITALS: BP 145/77; BP 160/90; PULSE 56; PULSE 60; RESP 20; TEMP 37.2; O2SAT 98; BMI 20.8
--- NOTE | 2020-11-14 16:33 | ED.ABDPAIN ---
HPI - Abdominal Pain General Chief Complaint: Abdominal Pain Stated Complaint: abd pain Time Seen by Provider: 11/14/20 16:26 Source: patient and title searcher Mode of arrival: ambulatory Limitations: no limitations History of Present Illness HPI narrative: 75-year-old male came in for evaluation of acute on chronic abdominal pain. Abdominal pain is been for months, patient is already following up with GI and workup for chronic pancreatitis/gastritis is in progress, patient stated for the last 2-3 weeks pain was worsening, patient stated cannot eat anything for the last 3 days because the severe pain, pain is localized to the epigastric area with no radiation, stated that food sometimes help the pain but because the nausea is not able to eat, patient also was not able to sleep . Patient declined vomiting, no fever, no chills, no diarrhea, no documented loss of weight despite the eating. Had a recent gastric emptying nuclear medicine study which showed mild delay of food emptying. Patient also had a prior visit to the emergency department last week, as documented patient had a recent CT scan done at [facility] documented in the previous visit as unremarkable. Related Data Home Medications Medication Instructions Recorded Confirmed blood pressure test kit-large #1 ea 03/27/20 11/08/20 gabapentin 600 mg tablet 600 mg PO 03/27/20 11/08/20 Previous Rx's Medication Instructions Recorded pantoprazole 40 mg PO BID #90 tab 07/20/20 sildenafil 100 mg tablet 100 mg PO DAILY PRN 30 Days #30 tab 08/08/20 naloxegol 12.5 mg tablet 12.5 mg PO QAM #30 tab 09/04/20 sucralfate 100 mg/mL oral 10 ml PO BID #420 ml 10/13/20 suspension blood sugar diagnostic #150 ea 11/07/20 lancets 28 gauge #150 ea 11/07/20 cholecalciferol (vitamin D3) 50 50 mcg PO DAILY 90 Days #90 cap 11/08/20 mcg (2,000 unit) capsule insulin aspart U-100 100 unit/mL See Rx Instructions SUBCUT TID 30 11/08/20 (3 mL) subcutaneous pen Days #15 ml insulin degludec 100 unit/mL (3 10 unit SUBCUT BEDTIME 30 Days #3 11/08/20 mL) subcutaneous pen ml omeprazole 40 mg PO DAILY #30 cap 11/08/20 pen needle, diabetic 32 gauge x #400 ea 11/08/20 sucralfate 1 g PO TID #90 tab 11/08/20 vitamin E (dl, acetate) 450 mg 450 mg PO DAILY 30 Days #30 cap 11/14/20 (1,000 unit) capsule Allergies Allergy/AdvReac Type Severity Reaction Status Date / Time No Known Allergies Allergy Verified 10/13/20 10:48 Review of Systems Review of Systems All other systems are reviewed and are negative Constitutional: Reports as per HPI and Reports no additional constitutional complaints Eyes: Reports as per HPI and Reports no additional eye complaints Reports system reviewed and no additional complaints, except as documented Cardiovascular: Reports as per HPI and Reports no additional cardiovascular complaints Respiratory: Reports as per HPI and Reports no additional respiratory complaints Gastrointestinal: Reports as per HPI and Reports no additional gastrointestinal complaints Genitourinary: Reports no additional female genitourinary complaints Musculoskeletal: Reports no additional musculoskeletal complaints Skin/Breast: Reports system reviewed and no additional complaints, except as docu Psychiatric: Reports no additional psychiatric complaints Endocrine: Reports no additional endocrine complaints Hematologic/Lymphatic: Reports no additional hematologic/lymphatic complaints Allergic/Immunologic: Reports no additional allergic/immunologic complaints Reports system reviewed and no additional complaints, except as documented and Reports Abnormal speech present Physical Exam Vital Signs: Vital Signs: Last Vital Signs Temp 98.5 F 11/14/20 18:42 Pulse 47 L 11/14/20 18:42 Resp 16 11/14/20 18:42 BP 167/71 H 11/14/20 18:42 Pulse Ox 99 11/14/20 18:42 Body Mass Index 20.8 Vital signs have been reviewed as appeared to be correct. Blood pressure normal. Heart rate normal. Respiration rate normal. Temperature normal. Oxygen saturation normal. Appearance: Alert. Oriented X3. No acute distress. Head: Normal external exam. Normocephalic. Atraumatic. No Moore signs noted. No raccoon eyes noted Eyes: PERRLA. EOMI. Conjunctiva and sclera normal. Eyelids normal. ENT: TM's Normal. Pharynx normal. Uvula midline. Moist mucous membranes. No trismus noted. No drooling noted. No muffled voice noted. Neck: Normal inspection. Neck supple. FROM. No adenopathy. Thyroid Normal. No meningeal signs. No neck mass noted. CVS: Normal heart rate and rhythm. Heart sound normal. No murmurs noted. Pulses normal throughout. Respiratory: No respiratory distress. Painless inspiration. Breath sounds normal. No wheezes/rales/rhonchi noted. Chest nontender. No accessory muscle usage noted or decreased air movement noted. Abdomen: Soft and nontender. Bowel sounds normal in all 4 quadrants. No distention noted. No organomegaly noted. No visible injury noted. Back: No CVA tenderness. Full range of motion noted. Skin: Skin warm and dry. Normal skin color. Normal skin turgor. No rashes/lesions/lacerations noted. Extremities: No lower extremity edema. Extremities exhibit normal range of motion. Extremities nontender. Neuro: Oriented X 3. No motor deficit. No sensory deficit. Reflexes normal. Course Course Course Narrative: Assessment and plan. 75-year-old male came in for evaluation of acute on chronic abdominal pain, patient has been followed by manufacturing project manager, patient has been evaluated in the emergency department showing no acute finding today, patient lives home alone unable to care for himself his PCP recommended to be placed to a half-way. Will obtain PT evaluation and social media editor to initiate the process of placement. Reevaluation(s) Reevaluation #1: Physician observation started at 19:00 . Patient placed in physician observation because the patient needed more time for medication to work and to see PT/case management for evaluation and the need for placement patient's vital sign were stable, patient is alert and oriented , neuro exam unchanged, unremarkable rest of physical exam. Time: 19:06 MDM - Abdominal Pain Lab Data Attestation: I reviewed the patient's lab results. Result diagrams: 11/14/20 17:03 11/14/20 17:03 Labs: Lab Results 11/14/20 11/14/20 11/14/20 Range/Units 17:03 17:03 18:11 WBC 5.2 (4.8-10.8) X10*3/uL RBC 4.20 L (4.60-5.80) X10*6/uL Hgb 11.7 L (14.0-18.0) g/dl Hct 35.5 L (42-52) % MCV 84.5 (80-98) fL MCH 27.9 (27.0-33.0) pg MCHC 33.0 (31.0-36.0) g/dl RDW 13.7 (11.0-16.0) % Plt Count 126 L (160-400) X10*3/uL MPV 9.8 (9.4-12.4) fL Immature Gran % (Auto) 0.4 (0.0-0.4) % Neut % (Auto) 64.1 (45-73) % Lymph % (Auto) 26.7 (20-40) % [place] % (Auto) 7.4 (2-11) % Eos % (Auto) 1.2 (0-4) % Baso % (Auto) 0.2 (0-2) % Lymph # (Auto) 1.4 (1.2-4.9) X10*3/uL [place] # (Auto) 0.4 (0.1-1.2) X10*3/uL Eos # (Auto) 0.1 (0.0-0.4) X10*3/uL Baso # (Auto) 0.0 (0.0-0.2) X10*3/uL Abs Immat Gran (auto) 0.02 (0.00-0.03) X10*3/uL Absolute Neuts (auto) 3.3 (2.0-8.3) X10*3/uL Absolute Nucleated RBC 0.000 (0.0-0.012) X10*3/uL Nucleated RBC % (auto) 0.0 (0.0-0.2) /100WBC Sodium 137 (135-145) mmol/L Potassium 3.9 (3.3-5.1) mmol/L Chloride 103 (96-108) mmol/L Carbon Dioxide 26 (22-29) mmol/L Anion Gap 12 (12-20) BUN 18 H (9-16) mg/dL Creatinine 1.89 H (0.5-1.4) mg/dL Estim Creat Clear Calc 34.7 Estimated GFR 35 Random Glucose 160 H (60-115) mg/dL Calcium 9.8 (8.4-10.2) mg/dL Total Bilirubin 1.3 H (0.0-1.0) mg/dL Direct Bilirubin 0.8 H (0.0-0.5) mg/dL AST 137 H (5-37) U/L ALT 39 (0-40) U/L Alkaline Phosphatase 301 H D (39-117) U/L Total Protein 7.4 (6.5-8.0) g/dL Albumin 4.6 (3.5-5.0) g/dL Lipase < 4 L (8-78) U/L Urine Color YELLOW Urine Appearance CLEAR Urine pH 6.0 (5.0-8.0) Ur Specific [place] 1.010 (1.005-1.025) Urine Protein NEG (NEG-TRACE) MG/DL Urine Glucose (UA) NEG (NEG) MG/DL Urine Ketones NEG (NEG) MG/DL Urine Blood NEG (NEG) Urine Nitrite NEG (NEG) Ur Leukocyte Esterase NEG (NEG) Imaging Data CT scan - abdomen: Radiologist's impression: No acute intra-abdominal process seen. Scattered diverticulosis but no obvious diverticulitis. Sequela of chronic pancreatitis but no acute pancreatitis seen. Discharge Plan Discharge Clinical Impression: Abdominal pain, Failure to thrive Prescriptions: No Action (DME) blood sugar diagnostic Strip See Rx Instructions strip Not Applicable BID Qty: 150 RF: 6 (DME) lancets 28 gauge misc See Rx Instructions ea topical QID Qty: 150 RF: 6 vitamin E (dl, acetate) 450 mg (1,000 unit) capsule 450 mg PO DAILY 30 Days Qty: 30 RF: 0 sucralfate 1 gram tablet 1 g PO TID Qty: 90 RF: 0 omeprazole 40 mg capsule,delayed release(DR/EC) 40 mg PO DAILY Qty: 30 RF: 0 pantoprazole 40 mg tablet,delayed release (DR/EC) 40 mg PO BID Qty: 90 RF: 2 sildenafil 100 mg tablet 100 mg PO DAILY PRN (Reason: sexual activity) 30 Days Qty: 30 RF: 0 gabapentin 600 mg tablet 600 mg PO RF: 0 (DME) blood pressure test kit-large Kit See Rx Instructions ea .ROUTE .MEDSUPPLY Qty: 1 RF: 0 Movantik 12.5 mg tablet 12.5 mg PO QAM Qty: 30 RF: 1 insulin aspart U-100 100 unit/mL (3 mL) insulin pen See Rx Instructions subcut TID 30 Days Qty: 15 RF: 9 insulin degludec 100 unit/mL (3 mL) insulin pen 10 unit subcut BEDTIME 30 Days Qty: 3 RF: 10 (DME) pen needle, diabetic [BD Romina 2nd Gen Pen Needle] 32 gauge x 5/32 needle See Rx Instructions .MEDSUPPLY Qty: 400 RF: 5 cholecalciferol (vitamin D3) 50 mcg (2,000 unit) capsule 50 mcg PO DAILY 90 Days Qty: 90 RF: 2 sucralfate 100 mg/mL suspension 10 ml PO BID Qty: 420 RF: 3 PMFSH Past Medical History Medical History Anxiety Chronic bilateral low back pain without sciatica CKD (chronic kidney disease) stage 3, GFR 30-59 ml/min Depressive disorder Diabetes type 2, uncontrolled 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, lumbosacral Eczema Elevated TSH Erectile dysfunction Gross hematuria Hematuria Hiatal hernia Hypertension Idiopathic chronic pancreatitis care home (current) use of insulin Type II diabetes mellitus Urge incontinence Urinary leakage Vitamin D deficiency Surgical History History of cholecystectomy History of esophagogastroduodenoscopy History of prostate surgery History of rotator cuff surgery History of shoulder surgery History of shoulder surgery Hx of colonoscopy Pancreatitis Status post glaucoma surgery Family History Family History Father Diabetes Mother Diabetes CVD (cardiovascular disease) Brother Diabetes Alive and well Brother Alive and well Diabetes Sister Alive and well Son Alive and well Daughter Alive and well Daughter Alive and well Daughter Alive and well Social History Social History Alcohol intake: never Smoking Status: Never smoker Use of substances other than those prescribed or required for medical reasons: No Advance Directives: No Advance Directives Information Provided: Yes
--- NOTE | 2020-11-14 17:00 | PC.NURSE ---
PT ALERT AND C/O ABD PAIN RATING PAIN 10/10. IV PLACED TO RAC, #22G, LABS DRAWN TO LAB, NS UP AND RUNNING W/O SITE INTACT, PT MEDICATED FOR PAIN AND NAUSEA PER EMAR.
--- NOTE | 2020-11-14 17:10 | PC.NURSE ---
PT TO CT IN STRETCHER.
[2020-11-14] MEDS: ondansetron HCL 4 MG/2 ML VIAL IVPUSH ×2 (17:12→20:18)
[2020-11-14] MEDS: Morphine Sulfate 2 MG/ML CARTRIDGE IVPUSH (17:12)
[2020-11-14] MEDS: Ketorolac Tromethamine 15 MG/ML VIAL IV (17:12)
[2020-11-14] MEDS: 0.9 % Sodium Chloride 1,000 ML 999 ML IVCONT (17:12)
[2020-11-14 17:18] LABS: MANUAL DIFF FLAG NO
[2020-11-14 17:20] LABS: Basophils Percent Auto 0.2 % (0-2); Eosinophils Absolute Auto 0.1 X10*3/uL (0.0-0.4); Eosinophils Percent Auto 1.2 % (0-4); Hematocrit 35.5 % (42-52); Hemoglobin 11.7 g/dl (14.0-18.0); Imm Gran Abs Auto 0.02 X10*3/uL (0.00-0.03); Imm Gran Pct Auto 0.4 % (0.0-0.4); Lymphocytes Absolute Auto 1.4 X10*3/uL (1.2-4.9); Lymphocytes Percent Auto 26.7 % (20-40); Mean Corpuscular Hemoglobin 27.9 pg (27.0-33.0); Mean Corpuscular Volume 84.5 fL (80-98); Mean Platelet Volume 9.8 fL (9.4-12.4); Monocytes Absolute Auto 0.4 X10*3/uL (0.1-1.2); Monocytes Percent Auto 7.4 % (2-11); Neutrophils Absolute Auto 3.3 X10*3/uL (2.0-8.3); Neutrophils Percent Auto 64.1 % (45-73); Platelet Count 126 X10*3/uL (160-400); Red Cell Distribution Width 13.7 % (11.0-16.0); White Blood Count 5.2 X10*3/uL (4.8-10.8)
[2020-11-14 18:06] LABS: Alanine Aminotransferase 39 U/L (0-40); Albumin Level 4.6 g/dL (3.5-5.0); Alkaline Phosphatase 301 U/L (39-117); Anion Gap 12 (12-20); Aspartate Amino Transferase 137 U/L (5-37); Bilirubin Direct 0.8 mg/dL (0.0-0.5); Bilirubin Total 1.3 mg/dL (0.0-1.0); Blood Urea Nitrogen 18 mg/dL (9-16); Calcium 9.8 mg/dL (8.4-10.2); Carbon Dioxide 26 mmol/L (22-29); Chloride 103 mmol/L (96-108); Creatinine Clr Calc Pharmacy 34.7; Estimated Glomerular Filt Rate 35; Glucose Random 160 mg/dL (60-115); Lipase < 4 U/L (8-78); Potassium 3.9 mmol/L (3.3-5.1); Sodium 137 mmol/L (135-145); Total Protein 7.4 g/dL (6.5-8.0)
[2020-11-14 18:38] LABS: Glucose Urine UA NEG (NEG); Leukocyte Esterase Urine NEG (NEG); Nitrite Urine NEG (NEG); Urine Blood NEG (NEG); Urine Ketones NEG (NEG); Urine Protein NEG (NEG-TRACE)
[2020-11-14 18:40] LABS: Appearance Urine CLEAR; Color Urine YELLOW
[2020-11-14 18:42] VITALS: BP 167/71; PULSE 47; RESP 16; TEMP 36.9; O2SAT 99
--- NOTE | 2020-11-14 20:00 | PC.NURSE ---
PT C/O LOWER ABD PAIN. PT MEDICATED PER EMAR FOR PAIN AND NAUSEA, PT AWAITING FOR CASE MGT IN AM. PT ALERT, RESPIRATIONS EASY, N/L. SKIN W/D. WILL CONTINUE TO MONITOR PT.
[2020-11-14 20:18] VITALS: RESP 18
[2020-11-14] MEDS: Morphine Sulfate 2 MG/ML CARTRIDGE 1 MG IVPUSH (20:18)
[2020-11-14 22:00] VITALS: BP 167/71; PULSE 55; RESP 16
[2020-11-14 23:40] VITALS: BP 171/72; PULSE 54; RESP 16
[2020-11-15] VITALS (11 sets, daily range): BP systolic 119–168; BP diastolic 61–92; PULSE 47–62; RESP 16–20; TEMP 36.6–37.3; O2SAT 96–985
--- NOTE | 2020-11-15 02:20 | PC.NURSE ---
pt c/o mid to lower abd pain. Pt states im unable to sleep d/t pain. Pt awake and watching tv. respirations easy, n/l. skin w/d. Pt denies any other complaints at this time. pt medicated as per pain and nausea. will continue to monitor pt.
[2020-11-15] MEDS: Morphine Sulfate 4 MG/ML CARTRIDGE IVPUSH (02:21)
[2020-11-15] MEDS: diphenhydrAMINE HCL 50 MG/ML VIAL 12.5 MG IVPUSH (02:22)
[2020-11-15] MEDS: Metoclopramide HCl 10 MG/2 ML VIAL IVPUSH (02:22)
--- NOTE | 2020-11-15 10:09 | PC.NURSE ---
Addendum entered by Alvaro Joseph RN 11/15/20 10:16: Case management at bedside. Original Note: Pt alert, oriented. Reports back pain, headache, RL abd pain. Pt lives alone, evaluated by physical therapy this a.m. Case Management working on rehab placement. Communicated via visiting teacher.
--- NOTE | 2020-11-15 10:38 | MHC.CM.ED ---
Received case management consult overnight from Dr Kaplan. Patient came to the ER due to abd pain. Work up essentially negative. Physical therapy eval completed. Short term rehab is recommended. Met with patient and supervisor prep in regards to discharge planning. Patient lives alone, uses an electric wheelchair or cane for mobility and has director hair and home health aide hours from [facility]. PCP verifed. Copy of HCP obtained from patient's PCP's office. Patient had 2nd Moderna vaccine in September. List of facilities contracted with patient's insurance provided to patient. Patient requesting referral to [facility] for their [facility] unit. Referral made via allmaripts. Continue to monitor for d/c needs.
--- NOTE | 2020-11-15 10:46 | MHC.CM.ED ---
Patient remains in ER. 183 referrals sent out. No bed offers made at this time. Will continue to reach out to facilities that haven't responded in [employer]. Continue to monitor for d/c needs.
[2020-11-15] MEDS: oxyCODONE HCl Immed Release 5 MG TABLET 10 MG PO (11:04)
--- NOTE | 2020-11-15 12:24 | MHC.CM.ED ---
[facility] is able to offer a bed and is in the process of obtaining insurance authorization. Once auth is obtained and negative covid screen is available, patient will transfer to their facility. Continue to monitor for d/c needs.
[2020-11-15 12:48] LABS: COVID-19 Test Negative (Negative)
--- NOTE | 2020-11-15 15:15 | MHC.CM.ED ---
Insurance auth has been obtained by [facility]. Patient can leave at 4pm. Action chair van booked. med nec with chart. Patient, Ann JIANG and Phyllis ELIZALDE aware. Continue to monitor for d/c needs.
[2020-11-15] MEDS: Cholecalciferol (Vitamin D3) 25 MCG TABLET 50 MCG PO (15:51)
[2020-11-15] MEDS: Gabapentin 600 MG TABLET PO (15:51)
[2020-11-15] MEDS: Aspirin Enteric Coated 81 MG TABLET.DR PO (15:51)
[2020-11-15] MEDS: Loratadine 10 MG TABLET PO (15:51)
[2020-11-15] MEDS: amLODIPine Besylate 5 MG TABLET PO (15:51)
[2020-11-15] MEDS: Morphine Sulfate ER 15 MG TABLET.ER PO (15:52)
== END 2020-11-15 16:21 | disposition skilled nursing facility (03) ==
PROVIDERS: Physician Assistant Medical; Emergency Provider Emergency Medicine; PCP Internal Medicine
DX: R10.13 Epigastric pain (principal); R62.7 Adult failure to thrive; Z20.822 Contact with and (suspected) exposure to COVID-19; E11.22 Type 2 diabetes mellitus with diabetic chronic kidney disease; I12.9 Hypertensive chronic kidney disease with stage 1 through stage 4 chronic kidney disease, or unspecified chronic kidney disease; N18.9 Chronic kidney disease, unspecified; Z79.4 Long term (current) use of insulin
CPT/HCPCS: 36415; 74176; 80048; 80076; 81003; 83690; 85025; 87635; 96361; 96374; 96375; 96376; 97162; 99285; J1200; J1885; J2270; J2405; J2765